=== PATIENT | female | born 1960 | race Caucasian/White ===

== ENCOUNTER 2021-06-09 04:30 | Inpatient (IN) | payer BC, MEDICAID ==
[2021-06-09 10:30] VITALS: BP 150/81
[2021-06-09 15:00] VITALS: BP 121/79
[2021-06-09] MEDS ORDERED: acetaminophen 650mg rectal suppository RC PRN (15:05)
[2021-06-09] MEDS ORDERED: HYDROcodone/acetaminophen 10/325mg tab PO PRN (15:05)
[2021-06-09] MEDS ORDERED: bisacodyl 10mg suppository rectal RC PRN (15:05)
[2021-06-09] MEDS ORDERED: magnesium 2GM in 50ml NS 50 ML IV PRN (15:05)
[2021-06-09] MEDS ORDERED: morphine 2 MG/ML inj. syringe IV PRN ×2 (15:05)
[2021-06-09] MEDS ORDERED: diphenhydrAMINE 25mg capsule PO PRN (15:05)
[2021-06-09] MEDS ORDERED: ondansetron 4mg rapidly disintigrating tab PO PRN (15:05)
[2021-06-09] MEDS ORDERED: PERFLUTREN PROTEIN-A MICROSPHR (Optison) 0.22 MG/ML 3ML VIAL IV ONE (15:05)
[2021-06-09] MEDS ORDERED: potassium CL 10mEq/100ml bag 100 ML IV PRN (15:05)
[2021-06-09] MEDS ORDERED: mag hydrox/Alum hydrox/simeth 30ml oral suspension PO PRN (15:05)
[2021-06-09] MEDS ORDERED: glucagon, human recombinant 1mg kit SUBCUT PRN (15:05)
[2021-06-09] MEDS ORDERED: magnesium Cl slow-release 64mg tablet PO PRN (15:05)
[2021-06-09] MEDS ORDERED: dextrose ORAL solution 15 GM/59 ML bottle PO PRN ×2 (15:05)
[2021-06-09] MEDS ORDERED: MESSAGE TO PHARMACY PO ONE (15:05)
[2021-06-09] MEDS ORDERED: potassium Cl 20 mEq SR tablet PO PRN ×2 (15:05)
[2021-06-09] MEDS ORDERED: magnesium 4gm in 100ml NS 100 ML IV PRN (15:05)
[2021-06-09] MEDS ORDERED: insulin Lispro (HumaLOG) vial - multi-dose SQ SCH (15:05)
[2021-06-09] MEDS ORDERED: acetaminophen 325mg tablet PO PRN ×2 (15:05)
[2021-06-09] MEDS ORDERED: HYDROcodone/acetaminophen 5mg/325mg tablet PO PRN (15:05)
[2021-06-09] MEDS ORDERED: dextrose 50%-water 50ml dispensing syringe IV PRN ×2 (15:05)
[2021-06-09] MEDS ORDERED: magnesium hydroxide 30ml (MOM) UD suspension PO PRN (15:05)
[2021-06-09] MEDS ORDERED: ondansetron/PF 4mg/2ml inj IV PRN (15:05)
[2021-06-09] MEDS ORDERED: aspirin 325mg tablet PO ONE (15:15)
[2021-06-09 16:34] LABS: BASOPHILS % (AUTO) 0.5 % (0-1); EOSINOPHILS # (AUTO) 0.2 X10'3 (0-0.9); EOSINOPHILS % (AUTO) 2.9 % (0-6); HEMATOCRIT 41.1 % (35.0-45.0); HEMOGLOBIN 14.2 g/dl (12.0-16.0); LYMPHOCYTES # (AUTO) 0.7 X10'3 (1.1-4.8); LYMPHOCYTES % (AUTO) 11.7 % (21-51); MEAN CORPUSCULAR HEMOGLOBIN 34.6 PG (27.0-31.0); MEAN CORPUSCULAR HGB CONC 34.5 g/dL (33.0-36.5); MEAN CORPUSCULAR VOLUME 100.2 FL (78-98); MEAN PLATELET VOLUME 8.1 FL (7.4-10.4); MONOCYTES # (AUTO) 0.4 X10'3 (0-0.9); NEUTROPHILS # (AUTO) 4.7 X10'3 (1.8-7.7); NEUTROPHILS % (AUTO) 77.9 % (42-75); PLATELET COUNT 164 X10'3 (140-440); RED CELL DISTRIBUTION WIDTH 13.4 % (11.5-14.5)
[2021-06-09 16:47] LABS: APTT 29 SECONDS (22-32)
[2021-06-09 16:51] LABS: ALANINE AMINOTRANSFERASE 29 U/L (12-78); ALBUMIN/GLOBULIN RATIO 0.8 (1.1-1.5); ALKALINE PHOSPHATASE 121 IU/L (46-116); ANION GAP 8 (8-16); ASPARTATE AMINO TRANSFERASE 21 U/L (10-37); BILIRUBIN,TOTAL 0.3 MG/DL (0.1-1.0); BLOOD UREA NITROGEN 8 MG/DL (7-18); BUN/CREATININE RATIO 10.1 (6.6-38.0); CALCIUM 8.5 MG/DL (8.5-10.1); CHLORIDE 109 MMOL/L (99-107); CREATININE 0.79 MG/DL (0.40-0.90); GLUCOSE 113 MG/DL (70-104); POTASSIUM 3.6 MMOL/L (3.5-5.1); SODIUM 145 MMOL/L (135-145); TOTAL CARBON DIOXIDE 28.3 MMOL/L (24-32); TOTAL PROTEIN 6.8 G/DL (6.4-8.2); eGFR 75 ML/MIN
[2021-06-09 16:57] LABS: HEMOGLOBIN A1C 5.8 % (4.5-6.2)
[2021-06-09 16:58] LABS: MAGNESIUM 1.9 MG/DL (1.5-2.4); PHOSPHORUS 2.6 MG/DL (2.3-4.5)
[2021-06-09] MEDS: enoxaparin 40mg/0.4ml syringe SUBCUT SCH (17:25)
[2021-06-09] MEDS: normal saline 1000ml 1,000 ML IV SCH (17:26)
[2021-06-09] MEDS: predniSONE 20 mg tablet PO SCH (17:26)
[2021-06-09] MEDS ORDERED: FLUT1BLS10 PO (17:43)
[2021-06-09] MEDS ORDERED: PHEN100C12 PO (17:43)
[2021-06-09] MEDS ORDERED: ALBU17AE26 PO (17:43)
[2021-06-09] MEDS: ipratropium/albuterol 3ml nebule NEB SCH ×2 (19:11→23:07)
[2021-06-09] MEDS ORDERED: K and/or MAG REPLACEMENT MC SCH (20:00)
[2021-06-09] MEDS: docusate sod 100mg capsule PO SCH (20:00)
[2021-06-09] MEDS ORDERED: insulin glargine (Lantus) pen - multi-dose SQ SCH (21:00)
[2021-06-09] MEDS: levetiracetam 250mg tablet PO SCH (21:02)
[2021-06-09] MEDS ORDERED: albuterol 2.5 MG/3 ML nebule NEB PRN (21:35)
[2021-06-09] MEDS ORDERED: iohexol 300mg/ml 100ml inj. ONE (21:58)
[2021-06-09 22:00] VITALS: BP 117/69
[2021-06-10 02:00] VITALS: BP 101/62
[2021-06-10] MEDS: ipratropium/albuterol 3ml nebule NEB SCH ×4 (03:18→15:29)
[2021-06-10] MEDS: normal saline 1000ml 1,000 ML IV SCH (05:15)
[2021-06-10 07:00] VITALS: BP 124/82
[2021-06-10] MEDS: levetiracetam 250mg tablet PO SCH (07:47)
[2021-06-10] MEDS: predniSONE 20 mg tablet PO SCH (07:48)
[2021-06-10] MEDS: docusate sod 100mg capsule PO SCH (07:48)
[2021-06-10] MEDS: enoxaparin 40mg/0.4ml syringe SUBCUT SCH (07:49)
[2021-06-10 07:57] LABS: BASOPHILS % (AUTO) 0.3 % (0-1); EOSINOPHILS % (AUTO) 0.1 % (0-6); HEMATOCRIT 40.3 % (35.0-45.0); HEMOGLOBIN 14.1 g/dl (12.0-16.0); LYMPHOCYTES # (AUTO) 0.7 X10'3 (1.1-4.8); LYMPHOCYTES % (AUTO) 8.9 % (21-51); MEAN CORPUSCULAR HEMOGLOBIN 35.3 PG (27.0-31.0); MEAN PLATELET VOLUME 8.6 FL (7.4-10.4); MONOCYTES # (AUTO) 0.6 X10'3 (0-0.9); MONOCYTES % (AUTO) 7.1 % (2-12); NEUTROPHILS # (AUTO) 6.5 X10'3 (1.8-7.7); NEUTROPHILS % (AUTO) 83.6 % (42-75); PLATELET COUNT 159 X10'3 (140-440); RED BLOOD COUNT 3.99 X10'6 (4.20-5.60); RED CELL DISTRIBUTION WIDTH 13.7 % (11.5-14.5); WHITE BLOOD COUNT 7.8 X10'3 (4.5-11.0)
[2021-06-10] MEDS ORDERED: phenytoin sod ER 100mg capsule PO SCH (08:00)
[2021-06-10] MEDS ORDERED: FLUTICASONE PROPION IH SCH (08:00)
[2021-06-10] MEDS ORDERED: SALMETEROL IH SCH (08:00)
[2021-06-10] MEDS ORDERED: aspirin 325mg tablet PO SCH (08:30)
[2021-06-10 08:32] LABS: ALANINE AMINOTRANSFERASE 26 U/L (12-78); ALBUMIN 3.2 G/DL (3.4-5.0); ALBUMIN/GLOBULIN RATIO 0.8 (1.1-1.5); ALKALINE PHOSPHATASE 127 IU/L (46-116); ANION GAP 7 (8-16); ASPARTATE AMINO TRANSFERASE 19 U/L (10-37); BILIRUBIN,TOTAL 0.2 MG/DL (0.1-1.0); BLOOD UREA NITROGEN 11 MG/DL (7-18); BUN/CREATININE RATIO 17.5 (6.6-38.0); CHLORIDE 108 MMOL/L (99-107); CREATININE 0.63 MG/DL (0.40-0.90); GLUCOSE 98 MG/DL (70-104); POTASSIUM 3.8 MMOL/L (3.5-5.1); SODIUM 138 MMOL/L (135-145); TOTAL CARBON DIOXIDE 23.5 MMOL/L (24-32); TOTAL PROTEIN 7.2 G/DL (6.4-8.2); eGFR > 90 ML/MIN
[2021-06-10 08:35] LABS: CHOL/HDL RATIO 3.9 (0.00-4.99); CHOLESTEROL 198 MG/DL (0-200); HDL CHOLESTEROL 51 MG/DL (35-60); LDL CHOLESTEROL 126 MG/DL (50-100); MAGNESIUM 2.1 MG/DL (1.5-2.4); PHENYTOIN (DILANTIN) 5.2 UG/ML (10.0-20.0); PHOSPHORUS 3.9 MG/DL (2.3-4.5); TRIGLYCERIDES 76 MG/DL (20-135)
[2021-06-10] MEDS ORDERED: LEVE250T PO (12:18)
[2021-06-10] MEDS ORDERED: PRED20TA PO (12:18)
--- NOTE | 2021-06-10 15:54 | NUR ---
Patient discharge home alert and [facility] , discharge instructions discussed .
== END 2021-06-10 15:53 | disposition home or self-care (01) | DRG 53 ==
LOC: EDSEX 04:30 → PCU 3S 04:30
PROVIDERS: ADMIT Family Medicine; ATTEND Family Medicine
PROC: BW281ZZ Computerized Tomography (CT Scan) of Head using Low Osmolar Contrast (ICD-10-PCS; principal; 2021-06-09)
DX: G40.409 Other generalized epilepsy and epileptic syndromes, not intractable, without status epilepticus (principal); E11.9 Type 2 diabetes mellitus without complications; Z60.2 Problems related to living alone; J45.909 Unspecified asthma, uncomplicated; Z80.41 Family history of malignant neoplasm of ovary; Z80.52 Family history of malignant neoplasm of bladder; Z85.42 Personal history of malignant neoplasm of other parts of uterus; Z90.710 Acquired absence of both cervix and uterus; Z88.0 Allergy status to penicillin
CPT/HCPCS: 36415; 70470; 80053; 80061; 80185; 82948; 83036; 83735; 83880; 84100; 84484; 85025; 85610; 85730; 93306; 94640; 94760; G0378; J1650; J1815; J7030; J7512; Q9967